=== PATIENT | female | born 1950 | race Caucasian/White ===

== ENCOUNTER 2017-09-12 13:40 | Inpatient (IN) ==
[2017-09-12] MEDS ORDERED: 0.9 % Sodium Chloride 1,000 ML IVC ONE (15:35)
[2017-09-12] MEDS ORDERED: Vancomycin 1,250 MG in D5% in Water 250 ML IVPB ONE (15:35)
[2017-09-12 16:01] LABS: Basophils % 0.3 %; Eosinophils # 0.2 K/mcL (0.0-0.6); Eosinophils % 2.4 %; Hematocrit 42.9 % (35.3-44.9); Immature Granulocytes % 0.4 % (0-4); Immature Platelets 3.1 % (1.1-6.1); Lymphocytes # 0.6 K/mcL (0.6-4.6); Mean Corpuscular HGB Conc 32.6 g/dL (31.6-35.5); Mean Corpuscular Hemoglobin 28.2 pg (28.0-33.3); Mean Corpuscular Volume 86.3 fL (83.0-100.0); Mean Platelet Volume 9.7 fL (9.4-12.4); Monocytes % 9.8 %; Platelet Count 296 K/mcL (140-400); Red Blood Count 4.97 M/mcL (3.82-4.97); Red Cell Distribution Width 13.4 % (11.5-14.5); Segmented Neutrophils % 81.1 %
[2017-09-12] MEDS ORDERED: Tdap (Boostrix) Vaccine 0.5 ML SYRINGE IM ONE (16:05)
[2017-09-12 16:11] LABS: INR 1.1; Prothrombin Time 11.7 Seconds (9.4-12.1)
[2017-09-12 16:14] LABS: Activated Partial Thrombo Time 30.7 Seconds (26.0-36.0)
[2017-09-12 16:21] LABS: Alanine Aminotransferase 20 Units/L (7-52); Albumin 4.2 g/dL (3.5-5.7); Albumin/Globulin Ratio 1.3 (1.1-2.2); Alkaline Phosphatase 98 Units/L (34-104); Aspartate Amino Transferase 19 Units/L (13-39); BUN/Creatinine Ratio 22 (6-26); Bilirubin,Direct 0.1 mg/dL (0.0-0.2); Bilirubin,Indirect 0.6 mg/dL (0.0-1.2); Bilirubin,Total 0.7 mg/dL (0.3-1.0); Blood Urea Nitrogen 17 mg/dL (8-23); C-Reactive Protein 71 mg/L (Less than 10); Calcium 9.2 mg/dL (8.6-10.3); Carbon Dioxide 25 mEq/L (23-29); Chloride 105 mEq/L (98-107); Globulin 3.2 g/dL (2.4-3.5); Glucose 106 mg/dL (70-105); Magnesium 2.3 mg/dL (1.6-2.6); Osmolality,Calculated 288 (280-300); Phosphorous 3.1 mg/dL (2.7-4.5); Potassium 3.9 mEq/L (3.5-5.1); Sodium 138 mEq/L (136-145); Total Protein 7.4 g/dL (6.4-8.9); eGFR For African Americans > 60 (> 60); eGFR For Non-African Americans > 60 (> 60)
--- NOTE | 2017-09-12 16:40 | Emergency Department Note ---
Disposition Clinical Impression: Cellulitis of hand, right Disposition: Admitted As Inpatient Condition: Fair Time of Disposition: 19:06 Extremity Problem HPI - General Chief complaint: ED Extremity Problem,Nontraumatic Stated complaint: right hand infection Time Seen by Provider: 09/12/17 14:45 Source: patient Limitations: no limitations Nursing Notes Reviewed: Yes Vital Signs Reviewed: Yes - History of Present Illness HPI Narrative: 67-year-old female presents to the emergency department complaining of right hand infection. States that she woke up and noticed a wound on the top of her right hand. Joints are primary care physician who did an x-ray ruled out any osteomyelitis and started her on Keflex. She has taken the Keflex for 2 days. It has gotten worse. Patient is unsure of her tetanus status. She has a history of Alzheimer's. Son was the main historian. Patient otherwise having no complaints including no headaches, blurry vision, neck pain, back pain, shortness of breath, chest pain, abdominal pain, pain with urination, change in bowel movements, fevers, chills,, pain or tingling going down the arms or legs or any generalized weakness. Pain Scale: 6 - Related Data Home Medications Medication Instructions Recorded Confirmed Cephalexin [Keflex] 500 mg PO BID 09/12/17 09/12/17 [place]-3/Dha/Epa/Fish Oil [Fish Oil 1,000 mg PO DAILY 09/12/17 09/12/17 1,000 mg Softgel] Allergies Allergy/AdvReac Type Severity Reaction Status Date / Time Penicillins Allergy Hives Verified 09/12/17 13:46 Review of Systems: 10 point review of systems done and negative unless otherwise stated in the history of present illness. All systems ED: reviewed and negative except as stated. Review of Systems: As Per HPI Past Medical History - Past Medical History Attestation: Yes The following information was validated with the patient. Source: patient Medical history: Reports: no medical history Psychiatric history: Reports: no psych history - Social History Smoking Status: Never smoker Physical Exam - General Limitations: no limitations General appearance: alert, in no apparent distress - Head Head exam: atraumatic, normocephalic, normal inspection - Eye Eye exam: Present: normal appearance, PERRL, EOMI - ENT ENT exam: normal exam, normal oropharynx, mucous membranes moist - Neck Neck exam: Present: normal inspection, full ROM, trachea midline - Chest Chest inspection: Present: normal inspection, symmetric chest wall rise - Respiratory Respiratory exam: Present: normal lung sounds bilaterally - Cardiovascular Cardiovascular exam: Present: regular rate, normal rhythm, normal heart sounds - Abdominal Exam Abdominal exam: Present: soft, Non-Tender, normal bowel sounds. Absent: tenderness, distention, guarding, rebound, rigidity - Extremities Exam Extremities exam: Present: normal inspection, full ROM. Absent: tenderness, pedal edema - Expanded Upper Extremity Exam Arm exam: Present: normal inspection, full ROM Elbow exam: Present: normal inspection, full ROM Forearm/Wrist exam: Present: normal inspection, full ROM Hand exam: Present: normal inspection, full ROM, swelling, erythema, other ( Supple puncture wound on the dorsum part of the hand that does havepus coming from it. There is also a puncture wound on the palmar surface of the hand no pus coming out of this. Both are covered with bandages.) Neuromotor exam: Normal: wrist extension, thumb opposition, thumb IP flexion, thumb adduction, fingers 2-5 abduction Neurosensory exam: Normal: radial nerve, ulnar nerve, median nerve Hand tendon exam: Normal: flexor digitorum profundus (location), flexor digitorum superficialis (location), extensor tendon (location) Vascular exam: Normal: capillary refill, radial pulse - Expanded Lower Extremity Exam Neurovascular/Tendon exam: Present: normal capillary refill. Absent: pulse deficit, motor deficit, sensory deficit, tendon deficit - Back Exam Back exam: Present: normal inspection, full ROM. Absent: tenderness, CVA tenderness (R), CVA tenderness (L) - Neurological Exam Neurological exam: Present: alert, oriented X3 - Skin Skin exam: Present: warm, dry, intact, normal color Course Course Narrative: 7-year-old presents to the emergency department with a hand cellulitis she has been on Keflex for 2 days with no help. We will do a generalized sepsis workup patient is not currently septic at this time she is going tachycardic but with no fever there is location for our area of infection in the hand. We will get CBC, BMP, lactate start IV fluids started patient on vancomycin and get CT with contrast of the right hand. Most likely disposition will be admission we will contact orthopedics after CT comes back. Vital Signs Temperature 97.8 F 09/12/17 13:43 Pulse Rate 97 09/12/17 13:43 Respiratory Rate 18 09/12/17 13:43 Blood Pressure 149/82 09/12/17 13:43 O2 Sat by Pulse Oximetry 100 09/12/17 13:43 Temperature 97.8 F 09/12/17 13:43 Pulse Rate 97 09/12/17 13:43 Respiratory Rate 18 09/12/17 13:43 Blood Pressure 149/82 09/12/17 13:43 O2 Sat by Pulse Oximetry 100 09/12/17 13:43 Oxygen Delivery Oxygen Delivery Room Air Extremity Problem, [place] - [facility] Narrative Medical decision making narrative: 67-year-old female presents to the emergency department complaining of right hand cellulitis. Patient no leukocytosis all other labs were normal. Did start patient on vancomycin as Keflex at our refill. CT scan showed no gas in the hand or any osseous involvement. It was all edema and cellulitic changes. He also did x-rays of the hand was again showed no osseous involvement. Patient will be admitted to the hospital service for IV antibiotics. I spoke with SUSANNAH Benitez agreed to accept the patient to their service. Patient is admitted in stable condition. Hand X-Ray 09/12/17 13:47 IMPRESSION: Diffuse soft tissue swelling, progressed. No acute fracture or bony erosion. D/ / Keyla Marks MD / Keyla Marks MD Interpreting Provider: Keyla Marks MD Wrist X-Ray 09/12/17 13:47 IMPRESSION: No acute osseous abnormality. D/ / Fuad Alexis MD / Fuad Alexis MD Interpreting Provider: Fuad Alexis MD Upper Extremity CT 09/12/17 15:37 IMPRESSION: 1. Diffuse subcutaneous edema throughout the soft tissues of the dorsal hand and extending more proximally along the ulnar forearm. Findings compatible with cellulitis. No subcutaneous gas identified. No organized drainable fluid collection. 2. No acute osseous abnormality and no radiographic evidence for osteomyelitis. 3. 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 D/ / Connor Escobar MD / Connor Escobar MD Interpreting Provider: Connor Escobar MD - Medical Records Medical records reviewed: Yes I reviewed the patient's medical records. - Lab Data Lab results reviewed: Yes I reviewed the patient's lab results. Result diagrams: 09/12/17 15:46 09/12/17 15:46 Lab Results 09/12/17 09/12/17 09/12/17 Range/Units 15:46 15:46 15:46 WBC 9.9 (4.3-11.1) K/mcL RBC 4.97 (3.82-4.97) M/mcL Hgb 14.0 (11.5-15.4) g/dL Hct 42.9 (35.3-44.9) % MCV 86.3 (83.0-100.0) fL MCH 28.2 (28.0-33.3) pg MCHC 32.6 (31.6-35.5) g/dL RDW 13.4 (11.5-14.5) % Plt Count 296 (140-400) K/mcL MPV 9.7 (9.4-12.4) fL Immature Gran % 0.4 (0-4) % Seg Neutrophils % 81.1 % Lymphocytes % 6.0 % Monocytes % 9.8 % Eosinophils % 2.4 % Basophils % 0.3 % Neutrophils # 8.0 (1.6-8.9) K/mcL Lymphocytes # 0.6 (0.6-4.6) K/mcL Monocytes # 1.0 (0.0-1.3) K/mcL Eosinophils # 0.2 (0.0-0.6) K/mcL Basophils # 0.0 (0.0-0.2) K/mcL Immature Plt Fraction 3.1 (1.1-6.1) % ESR 56 H (0-15) mm/hr PT 11.7 (9.4-12.1) Seconds INR 1.1 APTT 30.7 (26.0-36.0) Seconds Sodium (136-145) mEq/L Potassium (3.5-5.1) mEq/L Chloride (98-107) mEq/L Carbon Dioxide (23-29) mEq/L BUN (8-23) mg/dL Creatinine (0.60-1.20) mg/dL Est GFR ( Amer) (> 60) Est GFR (Non-Af Amer) (> 60) BUN/Creatinine Ratio (6-26) Glucose (70-105) mg/dL Calculated Osmolality (280-300) Lactic Acid (0.5-2.2) mmol/L Calcium (8.6-10.3) mg/dL Phosphorus (2.7-4.5) mg/dL Magnesium (1.6-2.6) mg/dL Total Bilirubin (0.3-1.0) mg/dL Direct Bilirubin (0.0-0.2) mg/dL Indirect Bilirubin (0.0-1.2) mg/dL AST (13-39) Units/L ALT (7-52) Units/L Alkaline Phosphatase (34-104) Units/L Troponin I (< 0.04) ng/mL C-Reactive Protein (Less than 10) mg/L Serum Total Protein (6.4-8.9) g/dL Albumin (3.5-5.7) g/dL Globulin (2.4-3.5) g/dL Albumin/Globulin Ratio (1.1-2.2) Urine Color (Yellow) Urine Clarity (Clear) Urine pH (5.0-8.0) pH Units Ur Specific Severance (1.010-1.025) Urine Protein (Neg-Trace) mg/dL Urine Glucose (UA) (Normal) mg/dL Urine Ketones (Negative) mg/dL Urine Blood (Negative) Urine Nitrite (Negative) Urine Bilirubin (Negative) Urine Urobilinogen (Normal) mg/dL Ur Leukocyte Esterase (Negative) Urine Microscopic RBC (0-3) per hpf Urine Microscopic WBC (0-3) per hpf Ur Squamous Epith Cells (None-Few) per lpf Urine Bacteria (None-Few) per hpf Hyaline Casts (None-Few) per lpf Ur Culture Indicated? (NO) 09/12/17 09/12/17 09/12/17 Range/Units 15:46 15:46 15:46 WBC (4.3-11.1) K/mcL RBC (3.82-4.97) M/mcL Hgb (11.5-15.4) g/dL Hct (35.3-44.9) % MCV (83.0-100.0) fL MCH (28.0-33.3) pg MCHC (31.6-35.5) g/dL RDW (11.5-14.5) % Plt Count (140-400) K/mcL MPV (9.4-12.4) fL Immature Gran % (0-4) % Seg Neutrophils % % Lymphocytes % % Monocytes % % Eosinophils % % Basophils % % Neutrophils # (1.6-8.9) K/mcL Lymphocytes # (0.6-4.6) K/mcL Monocytes # (0.0-1.3) K/mcL Eosinophils # (0.0-0.6) K/mcL Basophils # (0.0-0.2) K/mcL Immature Plt Fraction (1.1-6.1) % ESR (0-15) mm/hr PT (9.4-12.1) Seconds INR APTT (26.0-36.0) Seconds Sodium 138 (136-145) mEq/L Potassium 3.9 (3.5-5.1) mEq/L Chloride 105 (98-107) mEq/L Carbon Dioxide 25 (23-29) mEq/L BUN 17 (8-23) mg/dL Creatinine 0.77 (0.60-1.20) mg/dL Est GFR ( Amer) > 60 (> 60) Est GFR (Non-Af Amer) > 60 (> 60) BUN/Creatinine Ratio 22 (6-26) Glucose 106 H (70-105) mg/dL Calculated Osmolality 288 (280-300) Lactic Acid 1.0 (0.5-2.2) mmol/L Calcium 9.2 (8.6-10.3) mg/dL Phosphorus 3.1 (2.7-4.5) mg/dL Magnesium 2.3 (1.6-2.6) mg/dL Total Bilirubin 0.7 (0.3-1.0) mg/dL Direct Bilirubin 0.1 (0.0-0.2) mg/dL Indirect Bilirubin 0.6 (0.0-1.2) mg/dL AST 19 (13-39) Units/L ALT 20 (7-52) Units/L Alkaline Phosphatase 98 (34-104) Units/L Troponin I < 0.03 (< 0.04) ng/mL C-Reactive Protein 71 H (Less than 10) mg/L Serum Total Protein 7.4 (6.4-8.9) g/dL Albumin 4.2 (3.5-5.7) g/dL Globulin 3.2 (2.4-3.5) g/dL Albumin/Globulin Ratio 1.3 (1.1-2.2) Urine Color (Yellow) Urine Clarity (Clear) Urine pH (5.0-8.0) pH Units Ur Specific Severance (1.010-1.025) Urine Protein (Neg-Trace) mg/dL Urine Glucose (UA) (Normal) mg/dL Urine Ketones (Negative) mg/dL Urine Blood (Negative) Urine Nitrite (Negative) Urine Bilirubin (Negative) Urine Urobilinogen (Normal) mg/dL Ur Leukocyte Esterase (Negative) Urine Microscopic RBC (0-3) per hpf Urine Microscopic WBC (0-3) per hpf Ur Squamous Epith Cells (None-Few) per lpf Urine Bacteria (None-Few) per hpf Hyaline Casts (None-Few) per lpf Ur Culture Indicated? (NO) 09/12/17 Range/Units 16:40 WBC (4.3-11.1) K/mcL RBC (3.82-4.97) M/mcL Hgb (11.5-15.4) g/dL Hct (35.3-44.9) % MCV (83.0-100.0) fL MCH (28.0-33.3) pg MCHC (31.6-35.5) g/dL RDW (11.5-14.5) % Plt Count (140-400) K/mcL MPV (9.4-12.4) fL Immature Gran % (0-4) % Seg Neutrophils % % Lymphocytes % % Monocytes % % Eosinophils % % Basophils % % Neutrophils # (1.6-8.9) K/mcL Lymphocytes # (0.6-4.6) K/mcL Monocytes # (0.0-1.3) K/mcL Eosinophils # (0.0-0.6) K/mcL Basophils # (0.0-0.2) K/mcL Immature Plt Fraction (1.1-6.1) % ESR (0-15) mm/hr PT (9.4-12.1) Seconds INR APTT (26.0-36.0) Seconds Sodium (136-145) mEq/L Potassium (3.5-5.1) mEq/L Chloride (98-107) mEq/L Carbon Dioxide (23-29) mEq/L BUN (8-23) mg/dL Creatinine (0.60-1.20) mg/dL Est GFR ( Amer) (> 60) Est GFR (Non-Af Amer) (> 60) BUN/Creatinine Ratio (6-26) Glucose (70-105) mg/dL Calculated Osmolality (280-300) Lactic Acid (0.5-2.2) mmol/L Calcium (8.6-10.3) mg/dL Phosphorus (2.7-4.5) mg/dL Magnesium (1.6-2.6) mg/dL Total Bilirubin (0.3-1.0) mg/dL Direct Bilirubin (0.0-0.2) mg/dL Indirect Bilirubin (0.0-1.2) mg/dL AST (13-39) Units/L ALT (7-52) Units/L Alkaline Phosphatase (34-104) Units/L Troponin I (< 0.04) ng/mL C-Reactive Protein (Less than 10) mg/L Serum Total Protein (6.4-8.9) g/dL Albumin (3.5-5.7) g/dL Globulin (2.4-3.5) g/dL Albumin/Globulin Ratio (1.1-2.2) Urine Color Yellow (Yellow) Urine Clarity Clear (Clear) Urine pH 5.5 (5.0-8.0) pH Units Ur Specific Severance 1.026 H (1.010-1.025) Urine Protein 30 H (Neg-Trace) mg/dL Urine Glucose (UA) Normal (Normal) mg/dL Urine Ketones Negative (Negative) mg/dL Urine Blood Negative (Negative) Urine Nitrite Negative (Negative) Urine Bilirubin Negative (Negative) Urine Urobilinogen Normal (Normal) mg/dL Ur Leukocyte Esterase Negative (Negative) Urine Microscopic RBC 0-3 (0-3) per hpf Urine Microscopic WBC 3-5 H (0-3) per hpf Ur Squamous Epith Cells Many H (None-Few) per lpf Urine Bacteria None Seen (None-Few) per hpf Hyaline Casts None Seen (None-Few) per lpf Ur Culture Indicated? NO (NO) - Radiology Data Radiology results reviewed: Yes I reviewed the patient's radiology results. - EKG Data EKG attestation: Yes I reviewed and interpreted this EKG. EKG results narrative: EKG done at 1640 revealed myself and attending shows sinus rhythm at a rate of 97, UT interval 146, QRS 82, QTC 392 with a leftward axis there is no acute ST changes no acute T-wave changes no other signs of ischemia. No other signs of heart block or hypertrophy or heart strain or WPW/Brugada syndrome. Overall EKG is unchanged.
--- NOTE | 2017-09-12 16:48 | Emergency Department Note ---
START Narrative - START START: I examined this patient and my medical decision-making was reviewed with the Resident Physician. I agree with the documented findings, disposition and treatment plan as described except to the extent set forth below. 67 year old female presents to the ED with complaints of right hand infection that is spreading up her arm. It appers that she has failed outpatient therapy for cellulitis and is progressively getting worse. WE will admit to medicine with IV ABX and due to presence of Kannavals signs we will consutl ith hand surgery and obtain a CT.
[2017-09-12 17:02] LABS: Bilirubin,Urine Negative (Negative); Blood,Urine Negative (Negative); Clarity,Urine Clear (Clear); Color,Urine Yellow (Yellow); Glucose,Urine (UA) Normal (Normal); Ketones,Urine Negative (Negative); Leukocyte Esterase,Urine Negative (Negative); Nitrite,Urine Negative (Negative); PH,Urine 5.5 pH Units (5.0-8.0); Protein,Urine 30 mg/dL (Neg-Trace); Specific Gravity,Urine 1.026 (1.010-1.025); Urobilinogen,Urine Normal (Normal)
[2017-09-12 17:06] LABS: Bacteria,Urine None Seen per hpf (None-Few); Hyaline Casts,Urine None Seen per lpf (None-Few); RBC,Urine 0-3 per hpf (0-3); Squamous Epithelial Cell,Urine Many per lpf (None-Few)
[2017-09-12] MEDS ORDERED: Naloxone 0.4 MG/ML INJ IVP PRN (20:22)
[2017-09-12] MEDS: *HR* Heparin 5,000 UNIT/ML VIAL SQ SCH (20:30)
[2017-09-12] MEDS ORDERED: Vancomycin 1,250 MG in D5% in Water 250 ML IVPB SCH (21:00)
[2017-09-12] MEDS: 0.9 % Sodium Chloride w KCl 20 MEQ/1,000 ML MLS IVC SCH (21:28)
[2017-09-12] MEDS: Levofloxacin 500 MG/100 ML 500 MG/100 ML BAG IVPB SCH (21:30)
--- NOTE | 2017-09-12 22:04 | Internal Med History&Physical ---
Date of Encounter: 09/12/17 Time of Encounter: 19:45 Assessment and Plan (1) Cellulitis of hand, right Current visit: Yes Status: Acute 1. Will continue IV Vancomycin and add Levaquin. 2. Blood cultures drawn in ER. 3. Monitor hand and consult orthopedics if fails to improve. CT report reviewed and there is no evidence of abscess. (2) Dementia Current visit: Yes Status: Chronic 1. I can not verify if this is her baseline. 2. Need to confirm with family once available. 3. Need to obtain updated medication list once family contact is made. 4. Will order a sitter for now due to her confusion, climbing out of bed, and disorientation. Qualifiers: Dementia type: unspecified type Dementia behavioral disturbance: with behavioral disturbance Qualified Code(s): F03.91 - Unspecified dementia with behavioral disturbance (3) DVT prophylaxis Current visit: Yes Status: Acute 1. Heparin SQ. Internal Medicine - H&P: HPI Chief complaint: heand infection Admitted From: Emergency Dept Plans for Post Hospital Care: Home History of present illness: Ms. Cueva is a 67 year old female who presents to the ER with redness, swelling, and warmth to her right hand. She was noted to have cellulitis of the hand and, according to the ER records, failed outpatient treatment. She reportedly was on Keflex by her PCP for her cellulitis. Despite the antibiotic , cellulitis persisted. She was brought in by her family, according to ER records. She has a history of severe dementia. Patient was admitted to the hospitalist service after she received IV antibiotics in the ER. Upon my assessment of the patient, she is confused, disoriented, and appears to be visually hallucinating. Patient is unable to provide any history other than the fact that her hand is infected. She denies any trauma or injury, but I can not rely on her history. There are no family members present or available at this time. Past Med Surg Social Fam HX - Past Medical History Source: old records reviewed, other (ER notes) Medical history: dementia (per ER documentation) Psychiatric history: no psych history - Past Surgical History Surgical History: other (unknown) - Social History Smoking Status: Never smoker Smokeless Tobacco Status: No - Additional Family History Additional family history: Unknown Internal Medicine - H&P: Meds Cephalexin [Keflex] 500 mg PO BID 09/12/17 [History] [place]-3/Dha/Epa/Fish Oil [Fish Oil 1,000 mg Softgel] 1,000 mg PO DAILY 09/12/17 [History] 3 Allergy/AdvReac Type Severity Reaction Status Date / Time Penicillins Allergy Hives Verified 09/12/17 13:46 ROS unobtainable: due to mental status - Constitutional Vitals: Temp Pulse Resp BP Pulse Ox 98.4 F 91 15 183/97 97 09/12/17 19:57 09/12/17 19:57 09/12/17 19:57 09/12/17 19:57 09/12/17 19:57 General appearance: Present: A&O X 0, cooperative, pleasant. Absent: answers questions appropriately Exam: confused and disoriented, climbing out of bed consistently - Head Head exam: Present: atraumatic, normal inspection - Expanded Head Exam Head exam expanded: Absent: abrasion, contusion, general tenderness - Eye Eye exam: Present: EOMI, PERRL. Absent: scleral icterus Pupils: Present: normal accommodation - ENT ENT exam: Present: mucous membranes dry, normal exam - Neck Neck exam general surgery: Present: full ROM, supple. Absent: tenderness, nuchal rigidity - Respiratory Respiratory exam: Present: CTAB. Absent: chest wall tenderness, rales, wheezes - Cardiovascular Cardiovascular exam: Present: RRR, +S1, +S2. Absent: systolic murmur - GI/Abdominal GI/Abdominal exam: Present: normal bowel sounds, soft. Absent: hepatomegaly, mass, splenomegaly - Extremities Exam Extremities exam: Present: full ROM, tenderness, warm, radial pulses palpable and symmetrical. Absent: calf tenderness, pedal edema Additional comments: right hand with redness, swelling, and warmth on the dorsum of her hand with a small superficial laceration; neurovascular intact - Back Exam Back exam: Absent: CVA tenderness (L), CVA tenderness (R) - Neurological Exam Neurological exam: Present: altered, CN II-XII intact, no focal deficits. Absent: motor sensory deficit, oriented X3 - Psychiatric Additional comments: confused and disoriented - Skin Skin exam: Present: dry, erythema (right hand), warm Internal Med - H&P Results - Labs CBC & Chem 7: 09/12/17 15:46 09/12/17 15:46 - Diagnostic Studies Other Images Status: image reviewed by me (Hand xray -- soft tissue swelling)
[2017-09-13 06:36] LABS: Basophils % 0.5 %; Eosinophils # 0.2 K/mcL (0.0-0.6); Eosinophils % 2.4 %; Hematocrit 38.7 % (35.3-44.9); Immature Granulocytes % 0.4 % (0-4); Lymphocytes # 0.5 K/mcL (0.6-4.6); Mean Corpuscular HGB Conc 32.3 g/dL (31.6-35.5); Mean Corpuscular Hemoglobin 27.9 pg (28.0-33.3); Mean Corpuscular Volume 86.4 fL (83.0-100.0); Mean Platelet Volume 9.7 fL (9.4-12.4); Monocytes # 0.7 K/mcL (0.0-1.3); Monocytes % 8.1 %; Neutrophils # 6.8 K/mcL (1.6-8.9); Platelet Count 267 K/mcL (140-400); Red Blood Count 4.48 M/mcL (3.82-4.97); Red Cell Distribution Width 13.3 % (11.5-14.5); Segmented Neutrophils % 82.6 %
[2017-09-13 06:39] LABS: Hemoglobin 12.5 g/dL (11.5-15.4)
[2017-09-13 06:54] LABS: Alanine Aminotransferase 17 Units/L (7-52); Albumin 3.6 g/dL (3.5-5.7); Albumin/Globulin Ratio 1.4 (1.1-2.2); Alkaline Phosphatase 81 Units/L (34-104); Aspartate Amino Transferase 17 Units/L (13-39); BUN/Creatinine Ratio 16 (6-26); Bilirubin,Total 0.9 mg/dL (0.3-1.0); Blood Urea Nitrogen 11 mg/dL (8-23); Calcium 8.6 mg/dL (8.6-10.3); Carbon Dioxide 24 mEq/L (23-29); Chloride 110 mEq/L (98-107); Globulin 2.6 g/dL (2.4-3.5); Glucose 117 mg/dL (70-105); Magnesium 2.1 mg/dL (1.6-2.6); Osmolality,Calculated 290 (280-300); Potassium 4.1 mEq/L (3.5-5.1); Sodium 140 mEq/L (136-145); Total Protein 6.2 g/dL (6.4-8.9); eGFR For African Americans > 60 (> 60); eGFR For Non-African Americans > 60 (> 60)
[2017-09-13] MEDS: *HR* Heparin 5,000 UNIT/ML VIAL SQ SCH ×2 (09:35→17:57)
[2017-09-13] MEDS: 0.9 % Sodium Chloride w KCl 20 MEQ/1,000 ML MLS IVC SCH (10:18)
[2017-09-13] MEDS: Vancomycin 1,000 MG in D5% in Water 250 ML IVPB SCH ×2 (10:19→21:39)
[2017-09-13] MEDS: Acetaminophen 325 MG TABLET PO PRN (15:55)
[2017-09-13] MEDS ORDERED: Vancomycin 1,000 MG in D5% in Water 250 ML IVPB SCH (16:00)
--- NOTE | 2017-09-13 17:33 | Internal Med Progress Note ---
Date of Encounter: 09/13/17 Time of Encounter: 14:00 - Assessment and plan (1) Cellulitis of hand, right Current Visit: Yes Status: Acute Assessment and plan: CT of right hand was negative for abscess. Continue vancomycin and Levaquin, skin marking applied to note for improvement. There is some right arm erythema needs close monitoring. A CK is 50 which rules out fasciitis (2) Dementia Current Visit: Yes Status: Chronic Assessment and plan: Early onset Brother is at bedside and states she is at baseline Qualifiers: Dementia type: unspecified type Dementia behavioral disturbance: with behavioral disturbance Qualified Code(s): F03.91 - Unspecified dementia with behavioral disturbance (3) Hypertension Current Visit: Yes Status: Acute Assessment and plan: No documented history but SBP running 150-180s. Will start oral chlorthalidone Qualifiers: Hypertension type: unspecified Qualified Code(s): I10 - Essential (primary ) hypertension (4) DVT prophylaxis Current Visit: Yes Status: Acute - Subjective Interval history: No acute events. Brother (POA) at bedside. States she is at baseline. She is confused and is unable to reliably tell me if she is having fevers. She denies hand pain. - Constitutional Vitals: Temp Pulse Resp BP Pulse Ox 98.3 F 90 16 170/90 97 09/13/17 16:53 09/13/17 16:53 09/13/17 16:53 09/13/17 16:53 09/13/17 16:53 General appearance: Present: A&O X 0, cooperative, pleasant. Absent: answers questions appropriately Exam: - Head Head exam: Present: atraumatic, normal inspection - Expanded Head Exam Head exam expanded: Absent: abrasion, contusion, general tenderness - Eye Eye exam: Present: EOMI, PERRL. Absent: scleral icterus Pupils: Present: normal accommodation - ENT ENT exam: Present: mucous membranes dry, normal exam - Neck Neck exam general surgery: Present: full ROM, supple. Absent: tenderness, nuchal rigidity - Respiratory Respiratory exam: Present: CTAB. Absent: chest wall tenderness, rales, wheezes - Cardiovascular Cardiovascular exam: Present: RRR, +S1, +S2. Absent: systolic murmur - GI/Abdominal GI/Abdominal exam: Present: normal bowel sounds, soft. Absent: hepatomegaly, mass, splenomegaly - Extremities Exam Extremities exam: Present: full ROM, tenderness, warm, radial pulses palpable and symmetrical. Absent: calf tenderness, pedal edema Additional comments: right hand with redness, swelling, and warmth on the dorsum of her hand with a small superficial laceration; neurovascular intact - Back Exam Back exam: Absent: CVA tenderness (L), CVA tenderness (R) - Neurological Exam Neurological exam: Present: altered, CN II-XII intact, no focal deficits. Absent: motor sensory deficit, oriented X3 - Psychiatric Additional comments: confused and disoriented Internal Medicine: Result - Labs CBC & Chem 7: 09/13/17 06:18 09/13/17 06:18 Labs: Short CBC 09/13/17 Range/Units 06:18 WBC 8.2 (4.3-11.1) K/mcL Hgb 12.5 D (11.5-15.4) g/dL Hct 38.7 (35.3-44.9) % Plt Count 267 (140-400) K/mcL Neutrophils # 6.8 (1.6-8.9) K/mcL BMP 09/13/17 06:18 Sodium 140 Potassium 4.1 Chloride 110 H Carbon Dioxide 24 BUN 11 Creatinine 0.67 Glucose 117 H Calcium 8.6 Liver Function 09/13/17 Range/Units 06:18 Total Bilirubin 0.9 (0.3-1.0) mg/dL AST 17 (13-39) Units/L ALT 17 (7-52) Units/L Alkaline Phosphatase 81 (34-104) Units/L Albumin 3.6 (3.5-5.7) g/dL - ABG Interpretation ABG results: PT/INR, D-dimer PT 11.7 Seconds (9.4-12.1) 09/12/17 15:46 Consult Discharge Plan - Plan Referrals: Juan M Linn MD [Primary Care Provider] -
[2017-09-13] MEDS: Levofloxacin 500 MG/100 ML 500 MG/100 ML BAG IVPB SCH (21:40)
[2017-09-14] MEDS: *HR* Heparin 5,000 UNIT/ML VIAL SQ SCH ×2 (05:20→18:00)
[2017-09-14] MEDS: Acetaminophen 325 MG TABLET PO PRN (09:51)
[2017-09-14] MEDS: Vancomycin 750 MG in D5% in Water 250 ML IVPB SCH ×2 (09:52→21:13)
[2017-09-14 10:29] LABS: Basophils % 0.3 %; Eosinophils # 0.2 K/mcL (0.0-0.6); Eosinophils % 3.4 %; Hematocrit 41.8 % (35.3-44.9); Hemoglobin 13.4 g/dL (11.5-15.4); Immature Granulocytes % 0.2 % (0-4); Lymphocytes # 0.5 K/mcL (0.6-4.6); Lymphocytes % 8.2 %; Mean Corpuscular HGB Conc 32.1 g/dL (31.6-35.5); Mean Corpuscular Hemoglobin 27.9 pg (28.0-33.3); Mean Corpuscular Volume 87.1 fL (83.0-100.0); Mean Platelet Volume 10.4 fL (9.4-12.4); Monocytes # 0.6 K/mcL (0.0-1.3); Monocytes % 9.7 %; Neutrophils # 4.7 K/mcL (1.6-8.9); Platelet Count 296 K/mcL (140-400); Red Cell Distribution Width 13.2 % (11.5-14.5); Segmented Neutrophils % 78.2 %
--- NOTE | 2017-09-14 16:17 | Internal Med Progress Note ---
Date of Encounter: 09/14/17 Time of Encounter: 16:15 - Assessment and plan (1) Cellulitis of hand, right Current Visit: Yes Status: Acute Assessment and plan: CT of right hand was negative for abscess. Continue vancomycin and Levaquin, skin marking applied to note for improvement, seems as there is regression of infection There is some right arm erythema needs close monitoring. Although improvement, would like Orthopedic Surgery consult for additional recommendations given initial extent of infection. (2) Dementia Current Visit: Yes Status: Chronic Assessment and plan: Early onset Brother is at bedside and states she is at baseline Qualifiers: Dementia type: unspecified type Dementia behavioral disturbance: with behavioral disturbance Qualified Code(s): F03.91 - Unspecified dementia with behavioral disturbance (3) Hypertension Current Visit: Yes Status: Acute Assessment and plan: No documented history but SBP running 150-180s. Will start oral chlorthalidone Qualifiers: Hypertension type: unspecified Qualified Code(s): I10 - Essential (primary ) hypertension (4) DVT prophylaxis Current Visit: Yes Status: Acute Assessment and plan: Heparin sq 5000 units bid - Subjective Interval history: Patient is in room with sitter. Patient has early onset Alzheimer's dementia. Sitter reports patient behavior normal and doing well. Patient has no complaints. - Constitutional Vitals: Temp Pulse Resp BP Pulse Ox 98.9 F 115 16 143/71 95 09/14/17 15:22 09/14/17 15:22 09/14/17 15:22 09/14/17 15:22 09/14/17 15:22 General appearance: Present: A&O X 0, cooperative, pleasant. Absent: answers questions appropriately Exam: - Head Head exam: Present: atraumatic, normal inspection - Expanded Head Exam Head exam expanded: Absent: abrasion, contusion, general tenderness - Eye Eye exam: Present: EOMI, PERRL. Absent: scleral icterus Pupils: Present: normal accommodation - ENT ENT exam: Present: mucous membranes dry, normal exam - Neck Neck exam general surgery: Present: full ROM, supple. Absent: tenderness, nuchal rigidity - Respiratory Respiratory exam: Present: CTAB. Absent: chest wall tenderness, rales, wheezes - Cardiovascular Cardiovascular exam: Present: RRR, +S1, +S2. Absent: systolic murmur - GI/Abdominal GI/Abdominal exam: Present: normal bowel sounds, soft. Absent: hepatomegaly, mass, splenomegaly - Extremities Exam Extremities exam: Present: full ROM, tenderness, warm, radial pulses palpable and symmetrical. Absent: calf tenderness, pedal edema Additional comments: right hand with redness, swelling, and warmth on the dorsum of her hand with a small superficial laceration; neurovascular intact. Redness on the forearm has regression to yesterday skin marking - Psychiatric Additional comments: pleasantly demented Internal Medicine: Result - Labs CBC & Chem 7: 09/14/17 07:41 09/13/17 06:18 Labs: Short CBC 09/14/17 Range/Units 07:41 WBC 6.0 (4.3-11.1) K/mcL Hgb 13.4 (11.5-15.4) g/dL Hct 41.8 (35.3-44.9) % Plt Count 296 (140-400) K/mcL Neutrophils # 4.7 (1.6-8.9) K/mcL - ABG Interpretation ABG results: PT/INR, D-dimer PT 11.7 Seconds (9.4-12.1) 09/12/17 15:46 Consult Discharge Plan - Plan Referrals: Juan M Linn MD [Primary Care Provider] -
[2017-09-14] MEDS: Levofloxacin 500 MG/100 ML 500 MG/100 ML BAG IVPB SCH (21:04)
[2017-09-15 05:23] LABS: Basophils % 0.6 %; Eosinophils # 0.3 K/mcL (0.0-0.6); Hematocrit 37.7 % (35.3-44.9); Hemoglobin 12.2 g/dL (11.5-15.4); Immature Granulocytes % 0.2 % (0-4); Lymphocytes # 0.6 K/mcL (0.6-4.6); Lymphocytes % 11.5 %; Mean Corpuscular HGB Conc 32.4 g/dL (31.6-35.5); Mean Corpuscular Hemoglobin 27.5 pg (28.0-33.3); Mean Corpuscular Volume 84.9 fL (83.0-100.0); Mean Platelet Volume 9.6 fL (9.4-12.4); Monocytes # 0.6 K/mcL (0.0-1.3); Monocytes % 11.7 %; Neutrophils # 3.5 K/mcL (1.6-8.9); Platelet Count 293 K/mcL (140-400); Red Blood Count 4.44 M/mcL (3.82-4.97); Red Cell Distribution Width 13.2 % (11.5-14.5)
[2017-09-15] MEDS: *HR* Heparin 5,000 UNIT/ML VIAL SQ SCH ×2 (06:01→18:04)
[2017-09-15 06:43] LABS: BUN/Creatinine Ratio 14 (6-26); Blood Urea Nitrogen 12 mg/dL (8-23); Calcium 8.9 mg/dL (8.6-10.3); Carbon Dioxide 26 mEq/L (23-29); Chloride 106 mEq/L (98-107); Glucose 112 mg/dL (70-105); Osmolality,Calculated 291 (280-300); Potassium 3.6 mEq/L (3.5-5.1); Sodium 140 mEq/L (136-145); eGFR For African Americans > 60 (> 60); eGFR For Non-African Americans > 60 (> 60)
[2017-09-15] MEDS: Vancomycin 750 MG in D5% in Water 250 ML IVPB SCH ×2 (10:30→21:17)
--- NOTE | 2017-09-15 13:15 | Internal Med Progress Note ---
Date of Encounter: 09/15/17 Time of Encounter: 13:13 - Assessment and plan (1) Cellulitis of hand, right Current Visit: Yes Status: Acute Assessment and plan: CT of right hand was negative for abscess. Continue vancomycin and Levaquin, skin marking applied to note for improvement, seems as there is regression of infection 2/5: Purulent drainage noted on dorsal aspect of hand Orthopedic Surgery consult for additional recommendations ID Consult, recommendations appreciated on discharge antibiotics IV vs PO. Needs outpatient follow-up. (2) Dementia Current Visit: Yes Status: Chronic Assessment and plan: Early onset Brother is at bedside and states she is at baseline Qualifiers: Dementia type: unspecified type Dementia behavioral disturbance: with behavioral disturbance Qualified Code(s): F03.91 - Unspecified dementia with behavioral disturbance (3) Hypertension Current Visit: Yes Status: Acute Assessment and plan: No documented history but SBP running 150-180s. Added chlorthalidone, BP running 129-139/70s-80s, doing better. Qualifiers: Hypertension type: unspecified Qualified Code(s): I10 - Essential (primary ) hypertension (4) DVT prophylaxis Current Visit: Yes Status: Acute Assessment and plan: Heparin sq 5000 units bid - Subjective Interval history: Patient is in room with sitter. Patient has early onset Alzheimer's dementia. Patient has no complaints, denies fevers/chills, hand pain. - Constitutional Vitals: Temp Pulse Resp BP Pulse Ox 97.6 F 88 18 139/82 97 09/15/17 11:31 09/15/17 11:31 09/15/17 11:31 09/15/17 11:31 09/15/17 11:31 General appearance: Present: cooperative, A&O X 2, pleasant, answers questions appropriately Exam: CVS: RRR Right arm: erythema extending to the forearm is regressed. Edema is again noted in dorsal aspect of hand with purulent drainage were prior lesion was noted yesterday. Internal Medicine: Result - Labs CBC & Chem 7: 09/15/17 04:57 09/15/17 04:57 Labs: Short CBC 09/15/17 Range/Units 04:57 WBC 5.0 (4.3-11.1) K/mcL Hgb 12.2 (11.5-15.4) g/dL Hct 37.7 (35.3-44.9) % Plt Count 293 (140-400) K/mcL Neutrophils # 3.5 (1.6-8.9) K/mcL BMP 09/15/17 04:57 Sodium 140 Potassium 3.6 Chloride 106 Carbon Dioxide 26 BUN 12 Creatinine 0.86 Glucose 112 H Calcium 8.9 - ABG Interpretation ABG results: PT/INR, D-dimer PT 11.7 Seconds (9.4-12.1) 09/12/17 15:46 Consult Discharge Plan - Plan Referrals: Juan M Linn MD [Primary Care Provider] -
--- NOTE | 2017-09-15 13:51 | Infectious Disease Consult ---
Date of Encounter: 09/15/17 Time of Encounter: 13:47 Assessment and Plan (1) Cellulitis of hand, right Status: Acute Assessment and plan: Location: Right hand. Causative organism unclear. Etiology likely secondary to right hand wound. Xray and CT scan negative for OM, abscess, or SQ gas. Did show findings consistent with cellulitis. ESR 56, CRP 71. Ortho consulted. Await recommendations. Continue Vancomycin IV. Pharmacy to dose. Goal trough ~15. Continue Levaquin 750mg IV daily. Duration of treatment depends on the clinical picture. Will likely be able to switch to PO Bactrim when ready for discharge. Monitor renal function and for drug toxicity and dose-adjust antibiotics. (2) Open wound of right hand Status: Acute Assessment and plan: Location: Dorsal aspect right hand. Etiology unclear. X-ray negative for foreign body. Wound culture negative. Wound care per the primary team. Tdap given in the ER. Qualifiers: Encounter type: initial encounter Open wound type: puncture wound Foreign body presence: without foreign body Qualified Code(s): S61.431A - Puncture wound without foreign body of right hand, initial encounter (3) Dementia Status: Chronic Assessment and plan: Follows with [facility]. Likely Alzheimer's per the notes. Sitter at bedside. Qualifiers: Dementia type: unspecified type Dementia behavioral disturbance: with behavioral disturbance Qualified Code(s): F03.91 - Unspecified dementia with behavioral disturbance Infectious Disease HPI - Data of Consult Patient: new to practice Consult date: 09/15/17 Requesting Physician: Antonino Barkley MD Primary Care Provider: Juan M Linn - Consult Narrative Reason for consult: Right hand cellulitis History of present illness: Ms. Cueva is a 67 year old female with medical history of dementia. Patient was admitted to the hospital recently for right hand cellulitis. We are consulted September 15 for antibiotic recommendations for right hand cellulitis. Briefly, The patient's a 67-year-old female with past medical history as stated above. The patient's dementia precludes her ability to provide much information leading up to her hospitalization therefore, most of the information is obtained from the medical record. Apparently, a couple of days prior to admission the patient woke up and noticed a hand wound to the dorsal aspect. She states she was seen by her PCP and had an x-ray that was negative and was placed on oral Keflex, but continued to have worsening redness and swelling and pain. She presented to the emergency department. She was noted to be afebrile but was mildly tachycardic, but was otherwise hemodynamically stable. Her white blood cell count was normal. Laboratory studies reveal an ESR 56 with CRP of 71. Her lactic acid was normal. Blood cultures were obtained 2 sets are currently no growth to date. Chest x-ray of the right hand and wrist that was negative for ostium myelitis, but did show some soft tissue swelling. She had a right upper extremity CT scan that showed findings consistent with right hand cellulitis, but did not show any presence of abscess or subcutaneous gas. She was started on IV empiric antibiotics and admitted to the hospital for further evaluation. Since admission, the patient's white blood cell count has remained normal. She has been afebrile her tachycardia has resolved. They did check a CK level that was normal. Culture was negative. Orthopedics has been consulted. Currently, patient is on IV vancomycin and IV Levaquin. We've been asked to evaluate and make further recommendations. During my exam today, the patient is unable to tell me what happened to her hand. She denies any fevers, chills, or rigors. Denies headache, neck pain, weakness, or dizziness. Denies congestion, earache, or sore throat. Denies chest pain, shortness of breath, or cough. Denies nausea, vomiting, diarrhea, or constipation. Denies abdominal pain, urinary complaints, or abdominal pain. Denies pain in her back, legs, arms, or other extremities. Reports redness, pain and swelling to the right hand. States it is better since being on IV antibiotics. Denies spreading of the redness up her arm. ROM of the fingers and wrist WNL. Patient unable to make a fist due to pain. CC: Antonino Barkley MD Past Med Surg Social Fam HX - Past Medical History Attestation: Yes The following information was validated with the patient. Source: old records reviewed, nursing notes reviewed Medical history: dementia (per ER documentation) Psychiatric history: no psych history - Past Surgical History Surgical History: other (unknown) - Social History Smoking Status: Never smoker Smokeless Tobacco Status: No Infectious Disease-CN:Meds Cephalexin [Keflex] 500 mg PO BID 09/12/17 [History] [place]-3/Dha/Epa/Fish Oil [Fish Oil 1,000 mg Softgel] 1,000 mg PO DAILY 09/12/17 [History] 3 Allergy/AdvReac Type Severity Reaction Status Date / Time Penicillins Allergy Hives Verified 09/12/17 13:46 All systems: reviewed and no additional remarkable complaints except as stated Exam - Constitutional Vitals: Temp Pulse Resp BP Pulse Ox 97.6 F 88 18 139/82 97 09/15/17 11:31 09/15/17 11:31 09/15/17 11:31 09/15/17 11:31 09/15/17 11:31 General appearance: average body habitus, cooperative, no acute distress - Head Head exam: Present: atraumatic, normal inspection, normocephalic - Eye Eye exam: Present: EOMI, normal appearance, PERRL Pupils: Present: normal accommodation - ENT ENT exam: Present: mucous membranes moist - Neck Neck exam: Present: normal inspection - Respiratory Respiratory exam: Present: CTAB. Absent: rales, respiratory distress, rhonchi, wheezes - Cardiovascular Cardiovascular exam: Present: RRR, +S1, +S2 - GI/Abdominal GI/Abdominal exam: Present: normal bowel sounds, soft. Absent: distended, tenderness - Extremities Exam Extremities exam: Present: tenderness (right hand, dorsal aspect). Absent: joint swelling, pedal edema Additional comments: Erythema, warmth, and swelling noted to the dorsal aspect of the right hand. Punture wound noted with small amount of seropurulent drainage. No streaking up the arm or into the fingers noted. ROM of the wrist and fingers WNL. - Neurological Exam Neurological exam: Present: alert, oriented X3, no focal deficits - Psychiatric Psychiatric exam: Present: normal affect, normal mood - Skin Skin exam: Present: dry, intact, normal color, warm Infectious Disease CN: Results - Labs CBC & Chem 7: 09/15/17 04:57 09/15/17 04:57 Cultures: Cultures 09/14/17 14:50 Wound Culture - Preliminary Right Hand No growth. Consult Discharge Plan - Plan Referrals: Juan M Linn MD [Primary Care Provider] - - Attending Attestation I examined this patient and my medical decision-making was reviewed with the Resident Physician. I agree with the documented findings, disposition and treatment plan as described except to the extent set forth below. This is an addendum to original report dictated by Tasha Martinez CNP. Please refer to Raul sprague for full details. Patient is a 67 year old woman with advanced dementia that is unable to give me any information that lives with her brother as per sitter. I asked the sitter if the brother comes in, to page me so I can ask him a few questions. Patient with cellulitis of the hand and an ulcerated lesion on the dorsum of the hand. Etiology not clear. Not sure if this is caused by an animal bite, vs puncture wound vs trauma vs other. Work up including CT hand negative for osteo, abscess or septic arthritis. Patient was started on broad specture antibiotics including vanc and Levaquin and we were asked to make further recommendations. AT this point, per nursing hand is looking much better. No causative organism identified Agree with current antibiotics and Hand surgery eval If patient going home, and okay with hand surgery, switch to oral Bactrim to finish 2 weeks worth ESR 56 noted and CrP 71 Once brother comes to visit we will see if he will give us more info
[2017-09-15] MEDS: Levofloxacin 500 MG/100 ML 500 MG/100 ML BAG IVPB SCH (21:18)
[2017-09-16] MEDS: *HR* Heparin 5,000 UNIT/ML VIAL SQ SCH ×2 (05:47→16:11)
[2017-09-16 08:11] LABS: Basophils % 0.8 %; Eosinophils # 0.3 K/mcL (0.0-0.6); Hematocrit 42.4 % (35.3-44.9); Immature Granulocytes % 0.4 % (0-4); Lymphocytes # 0.7 K/mcL (0.6-4.6); Lymphocytes % 14.6 %; Mean Corpuscular HGB Conc 33.7 g/dL (31.6-35.5); Mean Platelet Volume 9.6 fL (9.4-12.4); Monocytes # 0.5 K/mcL (0.0-1.3); Monocytes % 10.4 %; Neutrophils # 3.4 K/mcL (1.6-8.9); Platelet Count 360 K/mcL (140-400); Red Blood Count 5.11 M/mcL (3.82-4.97); Red Cell Distribution Width 13.4 % (11.5-14.5); Segmented Neutrophils % 68.8 %
[2017-09-16] MEDS: Vancomycin 750 MG in D5% in Water 250 ML IVPB SCH (08:11)
[2017-09-16 08:12] LABS: BUN/Creatinine Ratio 13 (6-26); Blood Urea Nitrogen 12 mg/dL (8-23); Calcium 9.4 mg/dL (8.6-10.3); Carbon Dioxide 26 mEq/L (23-29); Chloride 104 mEq/L (98-107); Glucose 107 mg/dL (70-105); Osmolality,Calculated 290 (280-300); Potassium 3.4 mEq/L (3.5-5.1); Sodium 140 mEq/L (136-145); eGFR For African Americans > 60 (> 60); eGFR For Non-African Americans > 60 (> 60)
[2017-09-16 08:16] LABS: Hemoglobin 14.3 g/dL (11.5-15.4)
[2017-09-16] MEDS ORDERED: Aminoglycoside Consult 1 EACH MC ONE (08:16)
--- NOTE | 2017-09-16 11:38 | Infectious Disease Progress No ---
Date of Encounter: 09/16/17 Time of Encounter: 11:34 - Assessment and Plan (1) Cellulitis of hand, right Current Visit: Yes Status: Acute Location: Right hand. Causative organism unclear. Etiology likely secondary to right hand wound. Xray and CT scan negative for OM, abscess, or SQ gas. Did show findings consistent with cellulitis. ESR 56, CRP 71. Ortho consulted. Await recommendations. Continue Vancomycin IV. Pharmacy to dose. Goal trough ~15. Continue Levaquin 750mg IV daily. Duration of treatment depends on the clinical picture. Will likely be able to switch to PO Bactrim when ready for discharge. Monitor renal function and for drug toxicity and dose-adjust antibiotics. (2) Open wound of right hand Current Visit: Yes Status: Acute Location: Dorsal aspect right hand. Etiology unclear. X-ray negative for foreign body. Wound culture negative. Wound care per the primary team. Tdap given in the ER. Qualifiers: Encounter type: initial encounter Open wound type: puncture wound Foreign body presence: without foreign body Qualified Code(s): S61.431A - Puncture wound without foreign body of right hand, initial encounter (3) Dementia Current Visit: Yes Status: Chronic Follows with [facility]. Likely Alzheimer's per the notes. Sitter at bedside. Qualifiers: Dementia type: unspecified type Dementia behavioral disturbance: with behavioral disturbance Qualified Code(s): F03.91 - Unspecified dementia with behavioral disturbance - Subjective Interval history: Patient seen and examined. No acute events noted overnight. Patient states that overall she feels well today. Denies chest pain, shortness of breath, or cough. Denies fevers, chills, or rigors. Denies nausea, vomiting, or diarrhea. Denies abdominal pain, urinary complaints, or appetite changes. Complains of pain in the right hand, improved today. Denies oral thrush or new skin lesions. Infect Dis PN-Objective Data - Labs CBC & Chem 7: 09/17/17 04:54 09/17/17 04:54 Labs: Laboratory Results - last 24 hr 09/16/17 09/16/17 06:21 06:21 WBC 5.0 RBC 5.11 H Hgb 14.3 D Hct 42.4 MCV 83.0 MCH 28.0 MCHC 33.7 RDW 13.4 Plt Count 360 MPV 9.6 Immature Gran % 0.4 Seg Neutrophils % 68.8 Lymphocytes % 14.6 Monocytes % 10.4 Eosinophils % 5.0 Basophils % 0.8 Neutrophils # 3.4 Lymphocytes # 0.7 Monocytes # 0.5 Eosinophils # 0.3 Basophils # 0.0 Sodium 140 Potassium 3.4 L Chloride 104 Carbon Dioxide 26 BUN 12 Creatinine 0.91 Est GFR ( Amer) > 60 Est GFR (Non-Af Amer) > 60 BUN/Creatinine Ratio 13 Glucose 107 H Calculated Osmolality 290 Calcium 9.4 Cultures: Cultures 09/14/17 14:50 Wound Culture - Preliminary Right Hand No growth. Exam - Constitutional Vitals: Temp Pulse Resp BP Pulse Ox 98.2 F 83 14 129/65 95 09/16/17 08:59 09/16/17 08:59 09/16/17 08:59 09/16/17 08:59 09/16/17 08:59 General appearance: cooperative, no acute distress, obese - Head Head exam: Present: atraumatic, normal inspection, normocephalic - Eye Eye exam: Present: EOMI, normal appearance, PERRL Pupils: Present: normal accommodation - ENT ENT exam: Present: mucous membranes moist - Neck Neck exam: Present: normal inspection - Respiratory Respiratory exam: Present: CTAB. Absent: rales, respiratory distress, rhonchi, wheezes - Cardiovascular Cardiovascular exam: Present: RRR, +S1, +S2 - GI/Abdominal GI/Abdominal exam: Present: normal bowel sounds, soft. Absent: distended, tenderness - Extremities Exam Extremities exam: Present: tenderness (right dorsal hand). Absent: joint swelling, pedal edema Additional comments: Right hand with swelling and erythema to the dorsal aspect. Patient's ability to make a fist is limited due to pain and swelling. Erythema and swelling improved. Scabbed lesion noted to the dorsal aspect of the hand without fluctuance or drainage. - Neurological Exam Neurological exam: Present: alert, no focal deficits. Absent: oriented X3 ( Oriented to person and place only.) - Psychiatric Psychiatric exam: Present: normal affect, normal mood - Skin Skin exam: Present: dry, intact, normal color, warm Consult Discharge Plan - Plan Referrals: Jenny Linn MD [Partnered Physician] - - Attending Attestation I examined this patient and my medical decision-making was reviewed with the Resident Physician. I agree with the documented findings, disposition and treatment plan as described except to the extent set forth below.
[2017-09-16] MEDS: Acetaminophen 325 MG TABLET PO PRN (11:54)
--- NOTE | 2017-09-16 13:02 | Internal Med Progress Note ---
Date of Encounter: 09/16/17 Time of Encounter: 12:59 - Assessment and plan (1) Cellulitis of hand, right Current Visit: Yes Status: Acute Assessment and plan: CT of right hand was negative for abscess. Continue vancomycin and Levaquin, skin marking applied to note for improvement, seems as there is regression of infection Awaiting ortho eval, seems they have been consulted, will call again ID is on board, recommendations noted, patient is not septic (2) DVT prophylaxis Current Visit: Yes Status: Acute Assessment and plan: Heparin sq 5000 units bid (3) Hypertension Current Visit: Yes Status: Acute Assessment and plan: Controlled on current regimen, continue same. Qualifiers: Hypertension type: unspecified Qualified Code(s): I10 - Essential (primary ) hypertension (4) Dementia Current Visit: Yes Status: Chronic Assessment and plan: Early onset, oriented to person only, per SW, family making arrangement for safe discharge Qualifiers: Dementia type: unspecified type Dementia behavioral disturbance: with behavioral disturbance Qualified Code(s): F03.91 - Unspecified dementia with behavioral disturbance - Subjective Interval history: Seen and examined at bedside Very much confused Has no new complains Not safe to be discharged home by self - Constitutional Vitals: Temp Pulse Resp BP Pulse Ox 98.5 F 74 16 125/72 94 09/16/17 12:20 09/16/17 12:20 09/16/17 12:20 09/16/17 12:20 09/16/17 12:20 General appearance: Present: cooperative, A&O X 1, pleasant, answers questions appropriately - Head Head exam: Present: atraumatic, normocephalic - Eye Eye exam: Present: PERRL, conjuntiva pink, sclera anicteric Pupils: Present: PERRL - Neck Neck exam general surgery: Present: supple, trachea midline. Absent: lymphadenopathy - Respiratory Respiratory exam: Present: CTAB. Absent: accessory muscle use, rales, rhonchi, wheezes - Cardiovascular Cardiovascular exam: Present: RRR, +S1, +S2. Absent: diastolic murmur, gallop, rubs, systolic murmur - GI/Abdominal GI/Abdominal exam: Present: normal bowel sounds, soft, no peritoneal signs. Absent: distended, tenderness - Extremities Exam Extremities exam: Present: warm, radial pulses palpable and symmetrical. Absent : calf tenderness, cyanotic, pedal edema Additional comments: R hand cellulitis, with no visible collection - Neurological Exam Neurological exam: Present: alert, CN II-XII intact, no focal deficits. Absent : oriented X3, pronater drift, facial droop, speech deficit - Skin Skin exam: Present: dry, intact Internal Medicine: Result - Labs CBC & Chem 7: 09/16/17 06:21 09/16/17 06:21 Labs: Short CBC 09/16/17 Range/Units 06:21 WBC 5.0 (4.3-11.1) K/mcL Hgb 14.3 D (11.5-15.4) g/dL Hct 42.4 (35.3-44.9) % Plt Count 360 (140-400) K/mcL Neutrophils # 3.4 (1.6-8.9) K/mcL BMP 09/16/17 06:21 Sodium 140 Potassium 3.4 L Chloride 104 Carbon Dioxide 26 BUN 12 Creatinine 0.91 Glucose 107 H Calcium 9.4 - ABG Interpretation ABG results: PT/INR, D-dimer PT 11.7 Seconds (9.4-12.1) 09/12/17 15:46 Consult Discharge Plan - Plan Referrals: Juan M Linn MD [Primary Care Provider] -
--- NOTE | 2017-09-16 15:13 | Electrocardiograph Report ---
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
[2017-09-16] MEDS: levoFLOXacin 500 MG TABLET PO SCH (16:11)
[2017-09-17 05:31] LABS: Basophils # 0.1 K/mcL (0.0-0.2); Basophils % 1.2 %; Eosinophils # 0.3 K/mcL (0.0-0.6); Eosinophils % 5.5 %; Hematocrit 40.8 % (35.3-44.9); Hemoglobin 13.3 g/dL (11.5-15.4); Immature Granulocytes % 0.4 % (0-4); Lymphocytes # 0.7 K/mcL (0.6-4.6); Lymphocytes % 13.4 %; Mean Corpuscular HGB Conc 32.6 g/dL (31.6-35.5); Mean Corpuscular Hemoglobin 27.8 pg (28.0-33.3); Mean Corpuscular Volume 85.2 fL (83.0-100.0); Mean Platelet Volume 9.3 fL (9.4-12.4); Monocytes # 0.5 K/mcL (0.0-1.3); Monocytes % 10.5 %; Neutrophils # 3.5 K/mcL (1.6-8.9); Platelet Count 343 K/mcL (140-400); Red Blood Count 4.79 M/mcL (3.82-4.97); Red Cell Distribution Width 13.3 % (11.5-14.5)
[2017-09-17] MEDS: *HR* Heparin 5,000 UNIT/ML VIAL SQ SCH ×2 (05:53→17:07)
[2017-09-17 06:07] LABS: BUN/Creatinine Ratio 14 (6-26); Blood Urea Nitrogen 14 mg/dL (8-23); Calcium 9.3 mg/dL (8.6-10.3); Carbon Dioxide 28 mEq/L (23-29); Chloride 103 mEq/L (98-107); Glucose 107 mg/dL (70-105); Osmolality,Calculated 289 (280-300); Potassium 3.3 mEq/L (3.5-5.1); Sodium 139 mEq/L (136-145); eGFR For African Americans > 60 (> 60); eGFR For Non-African Americans 57 (> 60)
--- NOTE | 2017-09-17 12:58 | Infectious Disease Progress No ---
Date of Encounter: 09/17/17 Time of Encounter: 12:55 - Assessment and Plan (1) Cellulitis of hand, right Current Visit: Yes Status: Acute Location: Right hand. Causative organism unclear. Etiology likely secondary to right hand wound. Xray and CT scan negative for OM, abscess, or SQ gas. Did show findings consistent with cellulitis. ESR 56, CRP 71. Ortho consulted. Await recommendations. Antibiotics switched to PO overnight due to the loss of IV access. Continue Levaquin 750mg PO daily. Start Bactrim DS 1 tab PO BID. Duration of treatment depends on the clinical picture, but recommend a total of 10 days of treatment. Monitor renal function and dose-adjust antibiotics. No further recommendations from the ID team. Will sign off. Please re-consult if needed. (2) Open wound of right hand Current Visit: Yes Status: Acute Location: Dorsal aspect right hand. Etiology unclear. X-ray negative for foreign body. Wound culture negative. Wound care per the primary team. Tdap given in the ER. Qualifiers: Encounter type: initial encounter Open wound type: puncture wound Foreign body presence: without foreign body Qualified Code(s): S61.431A - Puncture wound without foreign body of right hand, initial encounter (3) Dementia Current Visit: Yes Status: Chronic Follows with [facility]. Likely Alzheimer's per the notes. Sitter at bedside. Qualifiers: Dementia type: unspecified type Dementia behavioral disturbance: with behavioral disturbance Qualified Code(s): F03.91 - Unspecified dementia with behavioral disturbance - Subjective Interval history: Patient seen and examined. No acute events noted overnight. Patient states that overall she feels well today. Denies chest pain, shortness of breath, or cough. Denies fevers, chills, or rigors. Denies nausea, vomiting, or diarrhea. Denies abdominal pain, urinary complaints, or appetite changes. Complains of pain in the right hand, improved today. Denies oral thrush or new skin lesions. Infect Dis PN-Objective Data - Labs CBC & Chem 7: 09/17/17 04:54 09/17/17 04:54 Labs: Laboratory Results - last 24 hr 09/17/17 09/17/17 04:54 04:54 WBC 5.1 RBC 4.79 Hgb 13.3 Hct 40.8 MCV 85.2 MCH 27.8 L MCHC 32.6 RDW 13.3 Plt Count 343 MPV 9.3 L Immature Gran % 0.4 Seg Neutrophils % 69.0 Lymphocytes % 13.4 Monocytes % 10.5 Eosinophils % 5.5 Basophils % 1.2 Neutrophils # 3.5 Lymphocytes # 0.7 Monocytes # 0.5 Eosinophils # 0.3 Basophils # 0.1 Sodium 139 Potassium 3.3 L Chloride 103 Carbon Dioxide 28 BUN 14 Creatinine 0.98 Est GFR ( Amer) > 60 Est GFR (Non-Af Amer) 57 L BUN/Creatinine Ratio 14 Glucose 107 H Calculated Osmolality 289 Calcium 9.3 Cultures: Cultures 09/14/17 14:50 Anaerobic Culture - Preliminary Right Hand At this time, no anaerobic growth is present. The culture will be finalized after 5 days of incubation. 09/14/17 14:50 Wound Culture - Final Right Hand No growth. Exam - Constitutional Vitals: Temp Pulse Resp BP Pulse Ox 98.0 F 84 14 137/85 94 09/17/17 12:04 09/17/17 12:04 09/17/17 12:04 09/17/17 12:04 09/17/17 12:04 General appearance: average body habitus, cooperative, no acute distress - Head Head exam: Present: atraumatic, normal inspection, normocephalic - Eye Eye exam: Present: EOMI, normal appearance, PERRL Pupils: Present: normal accommodation - ENT ENT exam: Present: mucous membranes moist - Neck Neck exam: Present: normal inspection - Respiratory Respiratory exam: Present: CTAB. Absent: rales, respiratory distress, rhonchi, wheezes - Cardiovascular Cardiovascular exam: Present: RRR, +S1, +S2 - GI/Abdominal GI/Abdominal exam: Present: normal bowel sounds, soft. Absent: distended, tenderness - Extremities Exam Extremities exam: Present: tenderness (right dorsal hand - improved). Absent: joint swelling, pedal edema Additional comments: Right dorsal hand erythema and edema improved. Scabbed lesion without fluctuance, warmth, or drainage. - Neurological Exam Neurological exam: Present: alert, no focal deficits. Absent: oriented X3 ( Oriented to person only.) - Psychiatric Psychiatric exam: Present: normal affect, normal mood - Skin Skin exam: Present: dry, intact, normal color, warm Consult Discharge Plan - Plan Referrals: Jenny Linn MD [Partnered Physician] - - Attending Attestation I examined this patient and my medical decision-making was reviewed with the Resident Physician. I agree with the documented findings, disposition and treatment plan as described except to the extent set forth below. Patient's clinical picture still at baseline. Cellulitis is improving. Still no family on the side. Patient pulled her powerglide. No IV access.
--- NOTE | 2017-09-17 13:55 | Internal Med Progress Note ---
Date of Encounter: 09/17/17 Time of Encounter: 16:03 - Assessment and plan (1) Cellulitis of hand, right Current Visit: Yes Status: Acute Assessment and plan: CT of right hand was negative for abscess. continue levaquin po only, patient is medically stable (2) DVT prophylaxis Current Visit: Yes Status: Acute Assessment and plan: Heparin sq 5000 units bid (3) Hypertension Current Visit: Yes Status: Chronic Assessment and plan: discontinue chlorthalidone, switch to amlodipine Qualifiers: Hypertension type: unspecified Qualified Code(s): I10 - Essential (primary ) hypertension (4) Dementia Current Visit: Yes Status: Chronic Assessment and plan: Early onset, oriented to person only, per SW, family making arrangement for safe discharge Qualifiers: Dementia type: unspecified type Dementia behavioral disturbance: with behavioral disturbance Qualified Code(s): F03.91 - Unspecified dementia with behavioral disturbance (5) Hypokalemia Current Visit: Yes Status: Acute Assessment and plan: replaced, possibly due to chlorthalidone. - Subjective Interval history: Seen and examined at bedside Very much confused Has no new complains Not safe to be discharged home by self - Constitutional Vitals: Temp Pulse Resp BP Pulse Ox 98.0 F 84 14 137/85 94 09/17/17 12:04 09/17/17 12:04 09/17/17 12:04 09/17/17 12:04 09/17/17 12:04 General appearance: Present: cooperative, A&O X 1, pleasant, answers questions appropriately - Head Head exam: Present: atraumatic, normocephalic - Eye Eye exam: Present: PERRL, conjuntiva pink, sclera anicteric Pupils: Present: PERRL - Neck Neck exam general surgery: Present: supple, trachea midline. Absent: lymphadenopathy - Respiratory Respiratory exam: Present: CTAB. Absent: accessory muscle use, rales, rhonchi, wheezes - Cardiovascular Cardiovascular exam: Present: RRR, +S1, +S2. Absent: diastolic murmur, gallop, rubs, systolic murmur - GI/Abdominal GI/Abdominal exam: Present: normal bowel sounds, soft, no peritoneal signs. Absent: distended, tenderness - Extremities Exam Additional comments: R hand looks much more improved, redness and swelling decreased, left hand with no swelling, no collection - Neurological Exam Neurological exam: Present: alert, CN II-XII intact, no focal deficits. Absent : oriented X3, pronater drift, facial droop, speech deficit - Skin Skin exam: Present: dry, intact Internal Medicine: Result - Labs CBC & Chem 7: 09/17/17 04:54 09/17/17 04:54 Labs: Short CBC 09/17/17 Range/Units 04:54 WBC 5.1 (4.3-11.1) K/mcL Hgb 13.3 (11.5-15.4) g/dL Hct 40.8 (35.3-44.9) % Plt Count 343 (140-400) K/mcL Neutrophils # 3.5 (1.6-8.9) K/mcL BMP 09/17/17 04:54 Sodium 139 Potassium 3.3 L Chloride 103 Carbon Dioxide 28 BUN 14 Creatinine 0.98 Glucose 107 H Calcium 9.3 - ABG Interpretation ABG results: PT/INR, D-dimer PT 11.7 Seconds (9.4-12.1) 09/12/17 15:46 Consult Discharge Plan - Plan Referrals: Jenny Linn MD [Partnered Physician] -
[2017-09-17] MEDS: amLODIPine 5 MG TABLET PO SCH (15:53)
[2017-09-17] MEDS: levoFLOXacin 500 MG TABLET PO SCH (15:54)
[2017-09-18] MEDS: *HR* Heparin 5,000 UNIT/ML VIAL SQ SCH ×2 (05:09→16:39)
[2017-09-18] MEDS: amLODIPine 5 MG TABLET PO SCH (07:18)
[2017-09-18] MEDS ORDERED: Sulfamethoxazole/Trimeth DS 1 EACH TABLET PO SCH (09:00)
--- NOTE | 2017-09-18 10:49 | Internal Med Progress Note ---
Date of Encounter: 09/18/17 Time of Encounter: 10:49 - Assessment and plan (1) Cellulitis of hand, right Current Visit: Yes Status: Acute Assessment and plan: CT of right hand was negative for abscess. continue levaquin po only, patient is medically stable patient is medically cleared for discharge when socially cleared (2) DVT prophylaxis Current Visit: Yes Status: Acute Assessment and plan: Heparin sq 5000 units bid (3) Hypertension Current Visit: Yes Status: Chronic Assessment and plan: discontinue chlorthalidone, switch to amlodipine Qualifiers: Hypertension type: unspecified Qualified Code(s): I10 - Essential (primary ) hypertension (4) Dementia Current Visit: Yes Status: Chronic Assessment and plan: Early onset, oriented to person only, per SW, family making arrangement for safe discharge Qualifiers: Dementia type: unspecified type Dementia behavioral disturbance: with behavioral disturbance Qualified Code(s): F03.91 - Unspecified dementia with behavioral disturbance (5) Hypokalemia Current Visit: Yes Status: Acute - Subjective Interval history: Seen and examined at bedside Very much confused Has no new complains Her Hand cellulitis is mostly resolved, cultures are negative Not safe to be discharged home by self - Constitutional Vitals: Temp Pulse Resp BP Pulse Ox 98.2 F 80 18 122/77 93 09/18/17 07:34 09/18/17 07:34 09/18/17 07:34 09/18/17 07:34 09/18/17 07:34 General appearance: Present: cooperative, A&O X 1, pleasant, answers questions appropriately - Head Head exam: Present: atraumatic, normocephalic - Eye Eye exam: Present: PERRL, conjuntiva pink, sclera anicteric Pupils: Present: PERRL - Neck Neck exam general surgery: Present: supple, trachea midline. Absent: lymphadenopathy - Respiratory Respiratory exam: Present: CTAB. Absent: accessory muscle use, rales, rhonchi, wheezes - Cardiovascular Cardiovascular exam: Present: RRR, +S1, +S2. Absent: diastolic murmur, gallop, rubs, systolic murmur - GI/Abdominal GI/Abdominal exam: Present: normal bowel sounds, soft, no peritoneal signs. Absent: distended, tenderness - Extremities Exam Extremities exam: Present: warm, radial pulses palpable and symmetrical. Absent : calf tenderness, cyanotic, pedal edema Additional comments: R hand looks much more improved, redness and swelling decreased, left hand with no swelling, no collection - Neurological Exam Neurological exam: Present: alert, CN II-XII intact, oriented X3, no focal deficits. Absent: pronater drift, facial droop, speech deficit - Skin Skin exam: Present: dry, intact Internal Medicine: Result - Labs CBC & Chem 7: 09/17/17 04:54 09/17/17 04:54 - ABG Interpretation ABG results: PT/INR, D-dimer PT 11.7 Seconds (9.4-12.1) 09/12/17 15:46 Consult Discharge Plan - Plan Referrals: Jenny Linn MD [Partnered Physician] -
[2017-09-18] MEDS: levoFLOXacin 500 MG TABLET PO SCH (16:39)
[2017-09-19] MEDS: *HR* Heparin 5,000 UNIT/ML VIAL SQ SCH ×2 (04:58→17:31)
[2017-09-19 06:38] VITALS: BP 131/77
[2017-09-19] MEDS: amLODIPine 5 MG TABLET PO SCH (08:23)
--- NOTE | 2017-09-19 11:14 | Discharge Summary ---
Date of Encounter: 09/19/17 Time of Encounter: 11:14 - Discharge Diagnosis (1) Cellulitis of hand, right Priority: Primary Status: Acute (2) DVT prophylaxis Priority: Primary Status: Acute (3) Hypertension Priority: Secondary Status: Chronic Qualifiers: Hypertension type: unspecified Qualified Code(s): I10 - Essential (primary ) hypertension (4) Dementia Priority: Secondary Status: Chronic Qualifiers: Dementia type: unspecified type Dementia behavioral disturbance: with behavioral disturbance Qualified Code(s): F03.91 - Unspecified dementia with behavioral disturbance (5) Hypokalemia Priority: Primary Status: Resolved - Discharge Medications Prescriptions: amLODIPine [Norvasc] 10 mg PO DAILY #30 tablet levoFLOXacin [Levaquin] 750 mg PO DAILY #4 tablet Home Medications: amLODIPine [Norvasc] 10 mg PO DAILY #30 tablet 09/19/17 [Rx] levoFLOXacin [Levaquin] 750 mg PO DAILY #4 tablet 09/19/17 [Rx] Allergies/Adverse Reactions: 3 Allergy/AdvReac Type Severity Reaction Status Date / Time Penicillins Allergy Hives Verified 09/12/17 13:46 Date of admission: 09/12/17 19:01 Primary care physician: Juan M Linn Consults: 09/12/17 20:23 Consult to [employer]ator [employer] [CONS] Routine Reason for SW Consult: dementia; discharge planning 09/14/17 12:17 Consult to Orthopedic Surgery [CONS] Routine Consulting Provider: Joe Steward Reason for Consult: Right hand cellulitis Call Completed: Yes 09/15/17 13:18 Consult to Infectious Diseases [CONS] Routine Consulting Provider: [facility] Reason for Consult: Right hand cellulitis Call Completed: Yes 09/16/17 08:29 Consult to Invasive Line Access Team [CONS] Routine Reason for Consult: IV vancomycin, limited vascular access Line Type: EPIV Discharging clinician: Robert Green Anticipated date of discharge: 09/19/17 - Patient Status Disposition: Transfer Psychiatric Hosp Condition: Good Functional capacity at discharge: independent ambulation Overall status at discharge: patient is back to baseline - Discharge Instructions Follow Up With: Jenny Linn MD [Partnered Physician] - - Diet and Activity Activity: resume usual activities as tolerated Diet: regular diet Interval History: See below Hospital course: Ms. Cueva is a 67 year old female with early onset Alzheimer's disease who was admitted for R hand cellulitis withut abscess collection She also noted to be hypertensive in-patient She recieved IV Vancomycin and Levaquin for [address] did not show any collections She has no surgical indication She was subsequently continued on oral antibiotics and has improved clinically her blood pressure has been controlled on Norvasc She is pleasantly confused , otherwise no neuro deficits Family had decided that they could not take her home, hence she is medically stable to be transferred to a [facility]iatric [facility] for further management and until family finds placement for her She is medically stable - Time Spent with Patient Total time spent providing and/or coordinating discharge services: Greater than 30 minutes - Constitutional Vitals: Temp Pulse Resp BP Pulse Ox 98.3 F 77 14 131/77 95 09/19/17 06:37 09/19/17 06:37 09/19/17 06:37 09/19/17 06:37 09/19/17 06:37 General appearance: Present: cooperative, A&O X 1, pleasant, no acute distress, answers questions appropriately - Head Head exam: Present: atraumatic, normocephalic - Eye Eye exam: Present: PERRL, conjuntiva pink, sclera anicteric Pupils: Present: PERRL - Neck Neck exam general surgery: Present: supple, trachea midline. Absent: lymphadenopathy - Respiratory Respiratory exam: Present: CTAB. Absent: accessory muscle use, rales, rhonchi, wheezes - Cardiovascular Cardiovascular exam: Present: RRR, +S1, +S2. Absent: diastolic murmur, gallop, rubs, systolic murmur - GI/Abdominal GI/Abdominal exam: Present: normal bowel sounds, soft, no peritoneal signs. Absent: distended, tenderness - Extremities Exam Extremities exam: Present: warm, radial pulses palpable and symmetrical. Absent : calf tenderness, cyanotic, pedal edema Additional comments: R hand swelling almost completely resolved, very minimal serous discharge - Neurological Exam Neurological exam: Present: alert, CN II-XII intact, normal gait, no focal deficits. Absent: oriented X3, pronater drift, facial droop, speech deficit - Skin Skin exam: Present: dry, intact
--- NOTE | 2017-09-19 11:19 | Physician Discharge Referral ---
ExtendedCare Referral Info Transfer To: [facility] Provider in Charge: Mickey Green Provider in Charge after Transfer: PCP Institutional Level of Care: Skilled - Diagnosis (1) Cellulitis of hand, right Priority: Primary Status: Acute (2) DVT prophylaxis Priority: Primary Status: Acute (3) Hypertension Priority: Secondary Status: Chronic (4) Dementia Priority: Secondary Status: Chronic (5) Hypokalemia Priority: Primary Status: Resolved - Transfer Medications Prescriptions: amLODIPine [Norvasc] 10 mg PO DAILY #30 tablet levoFLOXacin [Levaquin] 750 mg PO DAILY #4 tablet Home Medications: amLODIPine [Norvasc] 10 mg PO DAILY #30 tablet 09/19/17 [Rx] levoFLOXacin [Levaquin] 750 mg PO DAILY #4 tablet 09/19/17 [Rx] Allergies/Adverse Reactions: 3 Allergy/AdvReac Type Severity Reaction Status Date / Time Penicillins Allergy Hives Verified 09/12/17 13:46 - Respiratory Orders Smoking Cessation: Smoking cessation has been advised. For more information, call the [place] Tobacco Quit Line at 1-370-TUDK-NOW. CERTIFICATION: I certify that the transfer of the above named patient to an Extended Care Facility is necessary for the continuing treatment of the diagnosis listed. The above information is true and accurate reflection of patient's current condition. Confidential - Redisclosure prohibited without a patient's written consent.
[2017-09-19] MEDS: levoFLOXacin 500 MG TABLET PO SCH (17:30)
== END 2017-09-19 19:36 | DRG 603 ==
LOC: EMEROO 13:40 → 3NENU 19:01 → SUATTDRO 19:01 → 3NENU 19:42 → 3ANU 09-15 07:52
PROVIDERS: ADMIT Nurse Practitioner Family; ATTEND Internal Medicine